=== PATIENT | male | born 1960 | race Caucasian/White ===

== ENCOUNTER 2018-08-23 18:47 | Emergency (ER) | payer OTHER ==
[~2018-08-23] VITALS: Ht 170.2 cm; Wt 96.8 kg
[~2018-08-23 18:47] MED LIST: GLIM4TAB PO; MTF1000T; SIMV20TA2 PO
[2018-08-23 19:03] VITALS: Ht 170.2 cm; Wt 96.8 kg
[2018-08-23] MEDS ORDERED: KETOROLAC 15 MG INJ IV STA (20:24)
[2018-08-23] MEDS ORDERED: ONDANSETRON 4 MG INJ IV STA (20:24)
[2018-08-23] MEDS ORDERED: SOD CHLORIDE 0.9% 1,000 ML IV STA (20:24)
--- NOTE | 2018-08-23 21:54 | ERD ---
ER Documentation Chief Complaint Chief Complaint Sudden sharp R flank pain radiating to front since yesterday HPI This is a 58-year-old male with a past medical history of hyperlipidemia, diabetes who is presenting with right lower flank and back pain that started last night. It caught him immediately. He believes that it is musculoskeletal in nature. It is exacerbated by movement. He describes it as waxing and waning, sharp and aching with radiation toward the right groin. He does not endorse any dysuria or hematuria or urgency or frequency. He does not endorse a history of nephrolithiasis. He does not endorse any other abdominal pain. He denies constipation or diarrhea. He denies any black or bloody or tarry stools. The patient denies feeling sick recently. The patient denies fever or chills. The patient has had no headache or vision changes. The patient does not endorse neck or back pain. The patient denies lightheadedness or dizziness. The patient has had no chest pain or trouble breathing. The patient denies nausea or vomiting. The patient has had no focal deficits. The patient has had no weakn ess or numbness or tingling to the face or extremities. ROS All systems reviewed and are negative except as per history of present illness. Medications Home Meds Active Scripts Cyclobenzaprine Hcl* (Cyclobenzaprine Hcl*) 5 Mg Tablet, 5 MG PO TID, #90 TAB Prov:ARCELIA RIGGS MD 08/23/18 Ibuprofen* (Motrin*) 600 Mg Tab, 600 MG PO Q6H PRN for PAIN AND/OR INFLAMMATION, #30 TAB Prov:ARCELIA RIGGS MD 08/23/18 Reported Medications Simvastatin (Simvastatin) 20 Mg Tablet, 20 MG PO HS, TAB 04/25/14 Glimepiride* (Glimepiride*) 4 Mg Tablet, 4 MG PO DAILY, TAB 04/25/14 Metformin* (Glucophage*) 1,000 Mg Tablet 11/20/09 Allergies Allergies: Coded Allergies: No Known Drug Allergies (Verified Allergy, Mild, 04/25/14) PMhx/Soc History of Surgery: No Anesthesia Reaction: No Hx Neurological Disorder: No Hx Respiratory Disorders: No Hx Cardiac Disorders: Yes (Hyperlipidemia, diabetes) Hx Psychiatric Problems: No Hx Miscellaneous Medical Probl: No Hx Alcohol Use: No Hx Substance Use: No Hx Tobacco Use: No Smoking Status: Never smoker FmHx Family History: diabetes Physical Exam Vitals Vital Signs Date Temp Pulse Resp B/P (MAP) Pulse Ox O2 O2 Flow FiO2 Time Delivery Rate 08/23/18 98.1 99 22 181/99 96 Room Air 22:17 (126) 08/23/18 98.3 92 16 216/116 100 19:03 (149) Physical Exam Const: No apparent distress, well-developed, well-nourished Head: Normocephalic, Atraumatic Eyes: Normal Conjunctiva. Extraocular movements intact. Pupils equal, round and reactive to light ENT: Normal External Ears, Nose and Mouth. Neck: Full range of motion. No meningismus. Resp: Clear to auscultation bilaterally, No wheezes, rales or rhonchi Cardio: Regular rate and rhythm. No murmurs, rubs or gallops Abd: Soft, non tender, non distended. Normal bowel sounds Skin: No petechiae or rashes Back: No midline tenderness. Mild right-sided CVA and lower lumbar paraspinal tenderness Ext: No cyanosis, or edema Neur: Awake and alert, oriented 4. Cranial nerves intact. No facial droop. Normal strength, sensation and coordination. Psych: Normal Mood and Affect Result Diagram: 08/23/18205008/23/182050 Results 24 hrs Laboratory Tests Test 08/23/18 20:29 08/23/18 20:51 Bedside Urine pH (LAB) 6.5 Bedside Urine Protein (LAB) Negative Bedside Urine Glucose (UA) Negative Bedside Urine Ketones (LAB) Negative Bedside Urine Blood Negative Bedside Urine Nitrite (LAB) Negative Bedside Urine Leukocyte Esterase (L Negative White Blood Count 5.2 10^3/ul Red Blood Count 4.71 10^6/ul Hemoglobin 14.9 g/dl Hematocrit 43.2 % Mean Corpuscular Volume 91.7 fl Mean Corpuscular Hemoglobin 31.6 pg Mean Corpuscular Hemoglobin Concent 34.5 g/dl Red Cell Distribution Width 11.8 % Platelet Count 216 10^3/UL Mean Platelet Volume 9.6 fl Immature Granulocytes % 0.400 % Neutrophils % 51.7 % Lymphocytes % 36.4 % Monocytes % 9.6 % Eosinophils % 1.1 % Basophils % 0.8 % Nucleated Red Blood Cells % 0.0 /100WBC Immature Granulocytes # 0.020 10^3/ul Neutrophils # 2.7 10^3/ul Lymphocytes # 1.9 10^3/ul Monocytes # 0.5 10^3/ul Eosinophils # 0.1 10^3/ul Basophils # 0.0 10^3/ul Nucleated Red Blood Cells # 0.0 10^3/ul Urine Color STRAW Urine Clarity CLEAR Urine pH 6.0 Urine Specific Kathryn 1.010 Urine Ketones NEGATIVE mg/dL Urine Nitrite NEGATIVE mg/dL Urine Bilirubin NEGATIVE mg/dL Urine Urobilinogen NEGATIVE mg/dL Urine Leukocyte Esterase NEGATIVE Jose Ramon/ul Urine Hemoglobin NEGATIVE mg/dL Urine Glucose 1+ mg/dL Urine Total Protein NEGATIVE mg/dl Sodium Level 141 mmol/L Potassium Level 4.0 mmol/L Chloride Level 104 mmol/L Carbon Dioxide Level 28 mmol/L Anion Gap 9 Blood Urea Nitrogen 11 mg/dl Creatinine 0.55 mg/dl Est Glomerular Filtrat Rate mL/min > 60 mL/min Glucose Level 147 mg/dl Calcium Level 9.6 mg/dl Total Bilirubin 0.3 mg/dl Direct Bilirubin 0.00 mg/dl Indirect Bilirubin 0.3 mg/dl Aspartate Amino Transf (AST/SGOT) 31 IU/L Alanine Aminotransferase (ALT/SGPT) 22 IU/L Alkaline Phosphatase 99 IU/L Total Protein 7.8 g/dl Albumin 4.6 g/dl Globulin 3.20 g/dl Albumin/Globulin Ratio 1.43 Lipase 101 U/L Current Medications Medications Dose Sig/Matty Start Time Status Last (Trade) Ordered Route PRN Stop Time Admin Dose Reason Admin Sodium 1,000 ml @ Q1H STAT 08/23/18 DC 08/23/18 Chloride 1,000 mls/hr IV 20:24 08/23/18 20:58 21:23 Ondansetron 4 mg ONCE STAT 08/23/18 DC 08/23/18 HCl (Zofran IV 20:24 08/23/18 20:58 Inj) 20:26 Ketorolac 15 mg ONCE STAT 08/23/18 DC 08/23/18 Tromethamine IV 20:24 08/23/18 20:58 (Toradol) 20:26 Procedures/MDM MDM The patient's presentation warrants further investigation. Previous medical records, if available, were reviewed. LABS The patient's laboratory testing was obtained and reviewed. No emergent treatment was required unless described below. CBC: No E/o of systemic infection or severe anemia or thrombocytopenia Chemistry: No E/o severe acidosis or alkalosis or renal failure or liver disease or diabetic ketoacidosis Lipase: No E/o pancreatitis Urine: No E/o acute infection or hematuria TREATMENT/DISPOSITION The patient presents with right lower back pain. I do suspect a musculoskeletal etiology. The patient has no hematuria and his renal function is normal. I have low suspicion for nephrolithiasis. The patient was treated with IV fluids, Toradol and Zofran with improvement of his symptoms. Upon reevaluation of the patient, symptoms have improved. No emergent diagnoses were identified. At this time, I feel that the patient stable for discharge. The patient was instructed to follow-up with a primary care physician in 1-3 days. The patient will be given strict precautions with which to return to the emergency department. Prescriptions: Ibuprofen, Flexeril The patient's blood pressure was elevated at greater than 120/80 while in the emergency department. The patient was otherwise stable with no evidence of hypertensive urgency or emergency. The patient does not require admission for blood pressure control. I have discussed with the patient the risks of hypertension. I have instructed the patient to return to the ER for any new or worsening symptoms including chest pain, shortness of breath, headache, blurred vision, confusion, nausea, vomiting or LOC. I have advised the patient to follow up with the primary care physician for outpatient monitoring and treatment for hypertension in 1-3 days. Disclaimer: Inadvertent spelling and grammatical errors are likely due to EHR/dictation software use and do not reflect on the overall quality of patient care. Note that the electronic time recorded on this note does not necessarily reflect the actual time of the patient encounter. Departure Diagnosis: Primary Impression: Right-sided low back pain without sciatica Chronicity: acute Qualified Codes: M54.5 - Low back pain Additional Impression: Flank pain Condition: ARCELIA Stovall MD Aug 23, 2018 21:54
[2018-08-23] MEDS ORDERED: IBUP-1542 PO (21:56)
[2018-08-23] MEDS ORDERED: CYCL5TAB PO (21:56)
[2018-08-23 22:17] VITALS: BP 181/99; PULSE 99; RESP 22
== END 2018-08-23 22:23 | disposition home or self-care (01) ==
LOC: E/R 18:47
DX: M54.5 Low back pain (principal); R10.31 Right lower quadrant pain; E11.9 Type 2 diabetes mellitus without complications; Z79.84 Long term (current) use of oral hypoglycemic drugs
CPT/HCPCS: 80053; 81003; 83690; 85025; 96361; 96374; 96375; J1885; J2405; J7030; Z7502